=== PATIENT | male | born 1960 | race Caucasian/White ===

== ENCOUNTER 2020-01-06 07:36 | Emergency (ER) | payer MEDICARE, MEDICAID ==
[~2020-01-06] VITALS: Ht 177.8 cm; Wt 73.3 kg
[2020-01-06 07:44] VITALS: BP 114/72
--- NOTE | 2020-01-06 08:09 | NUR ---
States cough x 2 wks. NAD, NOS. Staying [facility] jail.
--- NOTE | 2020-01-06 08:54 | NUR ---
Patient/Caregiver given discharge instructions and they have confirmed that they understand the instructions. Patient ambulatory with steady gait. Educated on proper respiratory hygiene.
== END 2020-01-06 08:55 | disposition home or self-care (01) ==
LOC: ED 07:54
DX: B34.9 Viral infection, unspecified (principal); J44.9 Chronic obstructive pulmonary disease, unspecified; Z59.0 Homelessness
CPT/HCPCS: 71045; 99283